=== PATIENT | male | born 1955 | race Caucasian/White ===

== ENCOUNTER 2021-11-20 07:37 | Day surgery (SDC) | payer OTHER ==
[~2021-11-20] VITALS: Ht 175.3 cm; Wt 124.7 kg
[2021-11-20] MEDS ORDERED: BENZOCAINE 20% GEL 32 GM BOTTLE MM ONE (07:38)
[2021-11-20] MEDS ORDERED: ARTICAINE HCL/EPINEPHRINE 4%/1:200,000 BIT 1.7 ML CARTRIDGE IJ ONE (07:38)
[2021-11-20] MEDS ORDERED: NS IRRIG SOLN 1000 ML IR ONE (07:38)
[2021-11-20] MEDS ORDERED: NS 250 ML BAG IV ONE (07:38)
[2021-11-20 13:43] VITALS: BP_SYST 131
== END 2021-11-20 13:10 | disposition home or self-care (01) ==
LOC: SDS 07:37 → SMU 07:45 → SDS 13:10
PROVIDERS: ATTEND Dentist General Practice
DX: M27.2 Inflammatory conditions of jaws (principal); M89.8X0 Other specified disorders of bone, multiple sites; M26.603 Bilateral temporomandibular joint disorder, unspecified; M26.51 Abnormal jaw closure; J01.01 Acute recurrent maxillary sinusitis; K05.222 Aggressive periodontitis, generalized, moderate; K12.2 Cellulitis and abscess of mouth; I25.10 Atherosclerotic heart disease of native coronary artery without angina pectoris; I48.91 Unspecified atrial fibrillation; G40.909 Epilepsy, unspecified, not intractable, without status epilepticus; K05.6 Periodontal disease, unspecified; I13.0 Hypertensive heart and chronic kidney disease with heart failure and stage 1 through stage 4 chronic kidney disease, or unspecified chronic kidney disease; I50.9 Heart failure, unspecified; E78.5 Hyperlipidemia, unspecified; E66.9 Obesity, unspecified; M13.80 Other specified arthritis, unspecified site; N18.9 Chronic kidney disease, unspecified; G43.909 Migraine, unspecified, not intractable, without status migrainosus; Z79.899 Other long term (current) drug therapy; Z20.822 Contact with and (suspected) exposure to COVID-19
CPT/HCPCS: 21025; 21210; 36415; 70140; 87426; C1713 ×2; J7050

== ENCOUNTER 2021-12-25 07:39 | Day surgery (SDC) | payer OTHER ==
[~2021-12-25] VITALS: Ht 175.3 cm; Wt 124.7 kg
[2021-12-25] MEDS ORDERED: ARTICAINE HCL/EPINEPHRINE 4%/1:200,000 BIT 1.7 ML CARTRIDGE IJ ONE (07:40)
[2021-12-25] MEDS ORDERED: NS 100 ML BAG IV ONE (07:40)
[2021-12-25] MEDS ORDERED: NS IRRIG SOLN 1000 ML IR ONE (07:40)
[2021-12-25] MEDS ORDERED: BENZOCAINE 20% GEL 32 GM BOTTLE MM ONE (07:40)
[2021-12-25 13:41] VITALS: BP_SYST 121
== END 2021-12-25 10:00 | disposition home or self-care (01) ==
LOC: SDS 07:39 → SMU 07:44 → SDS 10:00
PROVIDERS: ATTEND Dentist General Practice
DX: M27.2 Inflammatory conditions of jaws (principal); I25.10 Atherosclerotic heart disease of native coronary artery without angina pectoris; I48.91 Unspecified atrial fibrillation; E78.5 Hyperlipidemia, unspecified; I11.0 Hypertensive heart disease with heart failure; I50.9 Heart failure, unspecified; E66.9 Obesity, unspecified; Z79.899 Other long term (current) drug therapy
CPT/HCPCS: 21025; 21048; 21215; 36415; 41826; 70140; 87426; C1713 ×2